=== PATIENT | male | born 1985 | race Two or more races ===

== ENCOUNTER 2017-05-15 23:54 | Emergency (ER) | payer MEDICAID ==
[~2017-05-15] VITALS: Ht 165.1 cm; Wt 109.1 kg
[2017-05-16] MEDS ORDERED: OXYcodone/APAP 5/325MG TABLET ONE (00:17)
[2017-05-16] MEDS ORDERED: OXYcodone/APAP 5/325MG TABLET PO ONE (00:30)
[2017-05-16 00:39] VITALS: BP 128/86
== END 2017-05-16 00:41 | disposition home or self-care (01) ==
LOC: ED 23:59
DX: K02.9 Dental caries, unspecified (principal)
CPT/HCPCS: 99283

== ENCOUNTER 2017-09-17 06:18 | Emergency (ER) | payer MEDICAID ==
[~2017-09-17] VITALS: Ht 165.1 cm; Wt 110.1 kg
[2017-09-17 07:59] VITALS: BP 122/56
== END 2017-09-17 08:01 | disposition home or self-care (01) ==
LOC: ED 07:20
DX: J02.8 Acute pharyngitis due to other specified organisms (principal); B97.89 Other viral agents as the cause of diseases classified elsewhere; R05 Cough
CPT/HCPCS: 71020; 93005; 99284

== ENCOUNTER 2017-10-13 18:33 | Emergency (ER) | payer MEDICAID ==
[~2017-10-13] VITALS: Ht 165.1 cm; Wt 110.5 kg
[2017-10-13] MEDS ORDERED: ALBUTEROL/IPRATROPIUM 2.5MG/0.5MG, 3 ML NPPB ONE (19:30)
[2017-10-13] MEDS ORDERED: ALBUTEROL/IPRATROPIUM 2.5MG/0.5MG, 3 ML ONE (19:30)
[2017-10-13] MEDS ORDERED: HYDROcodone/APAP 5/325 TABLET ONE (19:54)
[2017-10-13] MEDS ORDERED: HYDROcodone/APAP 5/325 TABLET PO ONE (20:00)
[2017-10-13 20:41] VITALS: BP 141/86
== END 2017-10-13 21:05 | disposition home or self-care (01) ==
LOC: ED 21:00
DX: B96.89 Other specified bacterial agents as the cause of diseases classified elsewhere (principal); J45.909 Unspecified asthma, uncomplicated; J20.8 Acute bronchitis due to other specified organisms
CPT/HCPCS: 71020; 94640; 99284; J7620

== ENCOUNTER 2018-08-27 07:01 | Emergency (ER) | payer SELFPAY ==
[~2018-08-27] VITALS: Ht 165.1 cm; Wt 107.2 kg
[2018-08-27] MEDS ORDERED: ALBU6.7H INH (07:18)
[2018-08-27] MEDS ORDERED: DEXAMETHASONE 4 MG/ML, 1ML ONE (07:20)
[2018-08-27] MEDS ORDERED: DEXAMETHASONE 4 MG/ML, 1ML PO ONE (07:30)
[2018-08-27 07:35] VITALS: BP 110/72
== END 2018-08-27 07:42 | disposition home or self-care (01) ==
LOC: ED 07:25
DX: B34.9 Viral infection, unspecified (principal); J45.909 Unspecified asthma, uncomplicated
CPT/HCPCS: 71046; 99284; J1100

== ENCOUNTER 2019-10-30 12:14 | Emergency (ER) | payer MEDICAID ==
[~2019-10-30] VITALS: Ht 165.1 cm; Wt 100.0 kg
[~2019-10-30 12:14] MED LIST: ALBU6.7H8 INH
[2019-10-30 12:31] VITALS: BP 128/81
[2019-10-30] MEDS ORDERED: MAALOX/HYOSCYAMINE/LIDOCAINE 45 ML BTL PO ONE (13:00)
[2019-10-30 13:13] LABS: BASOPHILS # (AUTO) 0.04 x10^3/uL (0-0.1); BASOPHILS % (AUTO) 1 % (0-1); EOSINOPHILS # (AUTO) 0.08 x10^3/uL (0-0.4); EOSINOPHILS % (AUTO) 1 % (1-7); LYMPHOCYTES # (AUTO) 2.12 x10^3/uL (1-3.4); LYMPHOCYTES % (AUTO) 31 % (22-44); MD NO; MEAN CORPUSCULAR HGB CONC 33.1 g/dL (33.2-36.2); MEAN CORPUSCULAR VOLUME 87.8 fL (81-97); MEAN PLATELET VOLUME 8.4 fL (7.4-10.4); MONOCYTES # (AUTO) 0.66 x10^3/uL (0.2-0.8); MONOCYTES % (AUTO) 10 % (2-9); NEUTROPHILS # (AUTO) 3.99 x10^3/uL (1.8-6.8); NEUTROPHILS % (AUTO) 58 % (42-75); PLATELET COUNT 252 x10^3/uL (130-400); RED CELL DISTRIBUTION WIDTH 13.9 % (9.4-14.8)
[2019-10-30] MEDS ORDERED: MAALOX/HYOSCYAMINE/LIDOCAINE 45 ML BTL ONE (13:18)
[2019-10-30 13:22] LABS: ALBUMIN 3.9 g/dL (3.4-5.0); ANION GAP 4 mmol/L (5-15); CHLORIDE 108 mmol/L (98-107)
[2019-10-30 13:26] LABS: ALANINE AMINOTRANSFERASE 32 U/L (12-78); ALKALINE PHOSPHATASE 85 U/L (45-117); BILIRUBIN,TOTAL 0.9 mg/dL (0.2-1.0); CREATININE 1.03 mg/dL (0.7-1.3); TOTAL PROTEIN 8.4 g/dL (6.4-8.2)
[2019-10-30] MEDS ORDERED: HYDROmorphone 1 MG/ML, 1ML INJ ONE (14:16)
[2019-10-30] MEDS ORDERED: HYDROmorphone 1 MG/ML, 1ML INJ IM ONE (14:30)
== END 2019-10-30 15:39 | disposition home or self-care (01) ==
LOC: ED 14:19
DX: K80.20 Calculus of gallbladder without cholecystitis without obstruction (principal); R11.2 Nausea with vomiting, unspecified; R19.7 Diarrhea, unspecified; Z72.89 Other problems related to lifestyle
CPT/HCPCS: 36415; 74022; 76700; 80053; 83690; 85025; 96372; 99284; J1170

== ENCOUNTER 2021-06-05 11:42 | Emergency (ER) | payer MEDICAID ==
[~2021-06-05] VITALS: Ht 162.6 cm; Wt 107.1 kg
[2021-06-05 11:45] VITALS: BP 136/85
--- NOTE | 2021-06-05 11:54 | NUR ---
Pt has an unsteady gait associated with his back pain. Wheelchaired to room and assisted onto [facility].
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
[2021-06-05] MEDS ORDERED: OXYcodone/APAP 5/325MG TABLET ONE (12:19)
[2021-06-05] MEDS ORDERED: DIAZEPAM 5 MG TABLET ONE (12:19)
[2021-06-05] MEDS ORDERED: OXYcodone/APAP 5/325MG TABLET PO ONE (12:30)
[2021-06-05] MEDS ORDERED: DIAZEPAM 5 MG TABLET PO ONE (12:30)
--- NOTE | 2021-06-05 13:16 | NUR ---
PT STATES PAIN IS 2/10 AT THIS TIME
--- NOTE | 2021-06-05 14:23 | NUR ---
Patient/Caregiver given discharge instructions and they have confirmed that they understand the instructions. Patient ambulatory with steady gait. NAD, all questions answered appropriately, denies additional needs at this time. No personal belongings left in room after discharge.
== END 2021-06-05 14:24 | disposition home or self-care (01) ==
LOC: ED 12:19
DX: S16.1XXA Strain of muscle, fascia and tendon at neck level, initial encounter (principal); S39.012A Strain of muscle, fascia and tendon of lower back, initial encounter; S29.012A Strain of muscle and tendon of back wall of thorax, initial encounter; S00.93XA Contusion of unspecified part of head, initial encounter; J45.909 Unspecified asthma, uncomplicated; Z87.11 Personal history of peptic ulcer disease; V49.49XA Driver injured in collision with other motor vehicles in traffic accident, initial encounter; Y93.89 Activity, other specified; Y92.410 Unspecified street and highway as the place of occurrence of the external cause; Y99.8 Other external cause status
CPT/HCPCS: 70450; 72072; 72110; 72125; 99285

== ENCOUNTER 2021-06-11 13:08 | Emergency (ER) | payer MEDICAID ==
[~2021-06-11] VITALS: Ht 165.1 cm; Wt 107.0 kg
--- NOTE | 2021-06-11 13:13 | NUR ---
NOT IN LOBBY X1
--- NOTE | 2021-06-11 13:21 | NUR ---
PT STILL IN BATHROOM
[2021-06-11 13:25] VITALS: BP 126/80
[2021-06-11] MEDS ORDERED: DIAZEPAM 5 MG TABLET PO/NG ONE (14:30)
[2021-06-11] MEDS ORDERED: KETOROLAC 30 MG/1 ML IM ONE (14:30)
[2021-06-11] MEDS ORDERED: DIAZEPAM 5 MG TABLET ONE ×2 (14:30→14:34)
[2021-06-11] MEDS ORDERED: KETOROLAC 30 MG/1 ML ONE (14:30)
== END 2021-06-11 16:02 | disposition home or self-care (01) ==
LOC: ED 14:12
DX: G89.11 Acute pain due to trauma (principal); M54.6 Pain in thoracic spine; V49.49XA Driver injured in collision with other motor vehicles in traffic accident, initial encounter; Y93.89 Activity, other specified; Y92.89 Other specified places as the place of occurrence of the external cause; Y99.8 Other external cause status
CPT/HCPCS: 71250; 99284; J1885